=== PATIENT | male | born 1950 | race Caucasian/White ===

== ENCOUNTER → 2025-07-01 07:50 | Outpatient (CLI) | payer MEDICARE, SELFPAY ==
--- NOTE | 2025-07-01 07:56 | DI.NM.S_ITS ---
PROCEDURE: NM GASTRIC EMPTYING STUDY RADIOPHARMACEUTICAL: 1.0 mCi Tc-99m sulfur colloid in an egg sandwich. INDICATIONS: persistent recurrent vomiting TECHNIQUE: A Tc-99m labeled sulfur colloid labeled egg sandwich or oatmeal was served to the patient. Anterior and posterior planar images of the abdomen were obtained at 0 minutes and 30 minutes, then at hourly intervals up to 4 hours. The patient was upright and ambulating during the interval. COMPARISON: None. FINDINGS: The stomach has normal size, morphology, and position. There is normal emptying of solid gastric contents from the stomach by visual inspection. No gastroesophageal reflux is visualized. The percentage of tracer retained at specific time points are as follows: Time point Percent gastric retention Normal range 30 minutes 86% 70% or more 1 hour 63% 30% to 90% 2 hours 20% 60% or less 3 hours 5% 30% or less 4 hours n/a 10% or less IMPRESSION: Normal exam. Dictated by: Sherley Mayes M.D. on 07/01/2025 at 17:08 Approved by: Sherley Mayes M.D. on 07/01/2025 at 17:09
== END ==
LOC: NUCM 07:55
PROVIDERS: PCP Nurse Practitioner Family; Referring Provider Nurse Practitioner Family; Visit Provider Surgery
DX: R11.15 Cyclical vomiting syndrome unrelated to migraine (principal)
CPT/HCPCS: 78264; A9541